=== PATIENT | female | born 1985 | race American Indian/Alaskan Native ===

== ENCOUNTER 2016-10-09 21:02 | Inpatient (IN) | payer OTHER ==
[2016-10-09] MEDS ORDERED: Sodium Chloride 0.9% 1,000 ML IV ONE (21:38)
[2016-10-09] MEDS ORDERED: Sodium Chloride 0.9% 1,000 ML ONE (21:41)
[2016-10-09 21:44] LABS: BASO % 0.3 % (0.0-2.0); HEMATOCRIT 40.5 % (34.0-47.0); LYMPH # 1.1 K/uL (1.0-4.3); MEAN CELL VOLUME 97.8 fL (81.0-99.0); MEAN CORPUSCULAR HEMOGLOBIN 32.9 pg (27.0-31.0); MEAN CORPUSCULAR HGB CONC 33.7 g/dL (33.0-37.0); MEAN PLATELET VOLUME 9.7 fL (7.2-11.7); MONO # 0.5 K/uL (0.0-0.8); MONO % 6.8 % (0.0-10.0); NRBC % 0.1 % (0.0-2.0); RED CELL DISTRIBUTION WIDTH 13.1 % (11.5-14.5); WHITE BLOOD COUNT 6.6 K/uL (4.8-10.8)
[2016-10-09 21:52] LABS: CHLORIDE 104 mmol/L (98-107); SODIUM 136 mmol/L (132-148)
[2016-10-09 21:53] LABS: POTASSIUM 4.4 mmol/L (3.6-5.2)
[2016-10-09 21:55] LABS: ALB/GLOB RATIO 1.3 (1.0-2.1); ALKALINE PHOSPHATASE 59 U/L (38-126); ALT/SGPT 13 U/L (9-52); AMYLASE 109 U/L (30-110); AST/SGOT 32 U/L (14-36); BILIRUBIN,TOTAL 1.2 mg/dL (0.2-1.3); BLOOD UREA NITROGEN 8 mg/dL (7-17); CALCIUM 9.2 mg/dl (8.6-10.4); CARBON DIOXIDE 16 mmol/L (22-30); GFR AFRICAN-AMERICAN > 60; GLUCOSE,RANDOM 146 mg/dL (65-105)
--- NOTE | 2016-10-09 21:58 | C.PDOC ---
History Of Present Illness A 31 year old female presents to the ED c/o vomiting, diarrhea with diffuse abdominal, and lower back pain that started today. Patient denies fever, chills , body aches, vaginal discharge or bleeding, or any other complaints. Patient notes the symptoms are similar to both her prior pregnancies but does not know when her last menstrual period was. Time Seen by Provider: 10/09/16 21:28 Chief Complaint (Nursing): Abdominal Pain History Per: Patient History/Exam Limitations: no limitations Onset/Duration Of Symptoms: Hrs Current Symptoms Are (Timing): Still Present Severity: Mild Location Of Pain/Discomfort: Diffuse (Abdominal pain), Other (Lower back pain) Associated Symptoms: denies: Fever, Chills Recent travel outside of the [place]: No Additional History Per: Patient Past Medical History Reviewed: Historical Data, Nursing Documentation, Vital Signs Vital Signs: Last Vital Signs Temp 97.5 F L 10/09/16 21:17 Pulse 66 10/09/16 21:17 Resp 20 10/09/16 21:17 BP 134/66 10/09/16 21:17 Pulse Ox 100 10/09/16 22:29 Family History: States: Unknown Family Hx - Social History Hx Alcohol Use: No Hx Substance Use: Yes - Immunization History Hx Tetanus Toxoid Vaccination: No Hx Influenza Vaccination: No Hx Pneumococcal Vaccination: No Review Of Systems Except As Marked, All Systems Reviewed And Found Negative. Constitutional: Negative for: Fever, Chills, Other (Body aches) Gastrointestinal: Positive for: Vomiting, Abdominal Pain (Diffuse ), Diarrhea Genitourinary: Negative for: Vaginal Discharge, Vaginal Bleeding Musculoskeletal: Positive for: Back Pain (Lower back pain) Physical Exam - Physical Exam Appears: Non-toxic, No Acute Distress (Uncomfortable), Other ( Hyperventillating. Vomiting) Skin: Warm, Dry, Pale Head: Atraumatic, Normacephalic Eye(s): bilateral: Normal Inspection Cardiovascular: Rhythm Regular, No Murmur Respiratory: Normal Breath Sounds, No Rales, No Rhonchi, No Wheezing Gastrointestinal/Abdominal: Soft, No Tenderness Neurological/Psych: Oriented x3, Normal Speech, Normal Cognition ED Course And Treatment - Laboratory Results Result Diagrams: 10/09/16 21:40 10/09/16 21:40 Lab Interpretation: Abnormal Interpretation Of Abnormal: HCO3 16, BHCG 27750 urine 2+ ketones O2 Sat by Pulse Oximetry: 100 (Room air) Pulse Ox Interpretation: Normal Progress Note: Pelvic ultrasound ordered. Reevaluation Time: 00:13 Reassessment Condition: Unchanged (Patient continues to vomit despite treatment with several doses of Zofran and IV fluids. Reglan IV ordered.) - Physician Consult Information Time Consulting Physician Contacted: 00:14 Physician Contacted: Anne A Edy Outcome Of Conversation: Patient to be admitted for IV fluids and emesis control. Medical Decision Making Medical Decision Making: Plans: -Blood labs -Zofran -Urinalysis -Reassess and disposition Disposition - Disposition Disposition: HOSPITALIZED Disposition Time: 00:14 Condition: FAIR - Clinical Impression Clinical Impression: Hyperemesis arising during - Scribe Statement The provider has reviewed the documentation as recorded by the Scribe Rody asif All medical record entries made by the Scribe were at my direction and personally dictated by me. I have reviewed the chart and agree that the record accurately reflects my personal performance of the history, physical exam, medical decision making, and the department course for this patient. I have also personally directed, reviewed, and agree with the discharge instructions and disposition.
[2016-10-09 22:38] LABS: RBC URINE 3 /hpf (0-3); URINE BILIRUBIN NEGATIVE (NEGATIVE); URINE BLOOD NEGATIVE (NEGATIVE); URINE COLOR Yellow (YELLOW); URINE GLUCOSE (UA) 1+ mg/dL (Normal); URINE KETONE 2+ mg/dL (NEGATIVE); URINE LEUKOCYTE ESTERASE NEG Leu/uL (Negative); URINE PROTEIN NEGATIVE (NEGATIVE); URINE UROBILINOGEN NORMAL mg/dL (0.2-1.0); WBC URINE 3 /hpf (0-5)
[2016-10-10] MEDS ORDERED: Sodium Chloride 0.9% 1,000 ML ONE (00:06)
[2016-10-10] MEDS ORDERED: Pyridoxine HCl 50 MG in Dextrose 5%/0.9% NS 1,000 ML IV ONE (00:22)
--- NOTE | 2016-10-10 01:31 | US ---
EXAM: US First Trimester, Transabdominal CLINICAL HISTORY: 31 years old, female; Signs and symptoms; Lmp or gestational age (in weeks): 5w6d by ultrasound; Antepartum complications; Other: Vomitting; ; Additional info: , vomiting, back pain TECHNIQUE: Real-time transabdominal obstetrical ultrasound of the maternal pelvis and a first trimester with image documentation. COMPARISON: No relevant prior studies available. FINDINGS: Gestation: Single live intrauterine gestation. heart rate of 91 beats per minute. [place]-rump length of 0.25 cm, correlating with gestational age of 5 weeks 6 days. Uterus/cervix: No subchorionic hemorrhage. No cervical dilatation or effacement. Ovaries: Normal ovaries. No adnexal masses. Free fluid: No significant free fluid. IMPRESSION: 1. Single live intrauterine gestation. 2. bradycardia. Close followup is recommended. 3. Incidental/non-acute findings are described above. EXAM: US , Transvaginal CLINICAL HISTORY: 31 years old, female; Signs and symptoms; Lmp or gestational age (in weeks): 5w6d by ultrasound; Antepartum complications; Other: Vomitting; ; Additional info: , vomiting, back pain TECHNIQUE: Real-time transvaginal obstetrical ultrasound of the maternal pelvis and a first trimester with image documentation. Transvaginal imaging was used for better evaluation of the fetus and adnexa. COMPARISON: No relevant prior studies available. FINDINGS: Gestation: Single live intrauterine gestation. heart rate of 91 beats per minute. Tome-rump length of 0.25 cm, correlating with gestational age of 5 weeks 6 days. Uterus/cervix: No subchorionic hemorrhage. No cervical dilatation or effacement. Ovaries: Normal ovaries. No adnexal masses. Free fluid: No significant free fluid.
[2016-10-10] MEDS: Pyridoxine HCl 50 MG in Dextrose 5%/0.9% NS 1,000 ML IV SCH (03:08)
[2016-10-10] MEDS: Potassium Chloride 20 MEQ in Dextrose 5%/0.9% NS 1,000 ML IV SCH ×2 (03:29→17:45)
--- NOTE | 2016-10-10 05:57 | CP.PCM.HP ---
History of Present Illness - History of Present Illness History of Present Illness: 31 yo , LMP unsure, ANDREW unsure, EGA 5w 6d by ultrasound 10/09/16 in E.D. admitted for management of intractble vomiting; despite IVFs and Zofran x 2 in the E.D. 10/09/16. Patient states had similar course with er two prevoius pregnancies: one she carried t term, one she terminated as a result of the physical duress. Tyalor now received in room 461, c/o severe low back pain. (+) Heaving; no actual vomitus in basin at her head; only saliva. P Ob: 2007, x 1 female, 6lb 6oz, CH; no complications. 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 Denies STIs PMH: denies PSH: D&C; oral surgery NKDA Meds: none Soc Hc: intermittent tobacco use. Daily marijuana use. Denies EtOH use. With FOB x 2 1/2 months Fam Hx: Mother alive 51 - multiple med issues (patient unclear). Father alive 58 - throat cancer. No other form of cancer in family Present on Admission - Present on Admission Any Indicators Present on Admission: No Review of Systems - Review of Systems All systems: reviewed and no additional remarkable complaints except - Reproductive: Female Reproductive:Female: As Per HPI Past Patient History - Infectious Disease Hx of Infectious Diseases: None - Past Medical History & Family History Past Medical History?: No - Past Social History Smoking Status: Current Some Days Smoker Alcohol: None Drugs: Cannabis (daily) - CARDIAC Hx Cardiac Disorders: No - PULMONARY Hx Respiratory Disorders: No - NEUROLOGICAL Hx Neurological Disorder: No - HEENT Hx HEENT Problems: No - RENAL Hx Chronic Kidney Disease: No - ENDOCRINE/METABOLIC Hx Endocrine Disorders: No - HEMATOLOGICAL/ONCOLOGICAL Hx Blood Disorders: No - INTEGUMENTARY Hx Dermatological Problems: No - MUSCULOSKELETAL/RHEUMATOLOGICAL Hx Back Pain: Yes Hx Falls: No - GASTROINTESTINAL Hx Gastrointestinal Disorders: Yes Hx Diarrhea: Yes Hx Nausea: Yes Hx Ulcer: Yes - GENITOURINARY/GYNECOLOGICAL Hx Genitourinary Disorders: No - PSYCHIATRIC Hx Substance Use: No - SURGICAL HISTORY Hx Surgeries: Yes Hx Dilation and Curettage: Yes - ANESTHESIA Hx Anesthesia: Yes Hx Anesthesia Reactions: No Hx Malignant Hyperthermia: No Has any member of the family had a problem w/ anesthesia?: No Meds Allergies/Adverse Reactions: Allergies Allergy/AdvReac Type Severity Reaction Status Date / Time No Known Allergies Allergy Verified 10/09/16 21:21 Physical Exam - Constitutional Appears: Well (visibly uncomfortable) - Head Exam Head Exam: NORMAL INSPECTION - Eye Exam Eye Exam: Normal appearance - ENT Exam ENT Exam: Mucous Membranes Moist - Respiratory Exam Respiratory Exam: NORMAL BREATHING PATTERN - Cardiovascular Exam Cardiovascular Exam: REGULAR RHYTHM - GI/Abdominal Exam GI & Abdominal Exam: Normal Bowel Sounds - Exam Bimanual exam: Cervical Motion Tendernes (Anteverted, 8 weeks; no adnexal masses or tenderness. Os closed), Uterine Tenderness - Extremities Exam Extremities exam: Positive for: normal inspection - Back Exam Additional comments: NO CVA tenderness - Psychiatric Exam Psychiatric exam: Anxious - Skin Skin Exam: Dry, Intact, Normal Color, Warm Results - Vital Signs Recent Vital Signs: Last Vital Signs Temp 98.6 F 10/10/16 03:10 Pulse 73 10/10/16 03:10 Resp 20 10/10/16 03:10 BP 123/68 10/10/16 03:10 Pulse Ox 98 10/10/16 03:10 - Labs Result Diagrams: 10/09/16 21:40 10/09/16 21:40 Assessment & Plan - Assessment and Plan (Free Text) Assessment: Labs and ultrasound report reviewed by me: ultrasound noted for bradycardia at 91 bpm; AGA 5w 6d. 31 yo P1011, 6w, intractable vomiting with ketonuria; no electrolyte imbalances. Possible impending demise. Will intake counselor patient Plan: Admit NPO Anti-emetics Pyridoxine IVFs Observe - Date & Time Date: 10/10/16 Time: 06:02
--- NOTE | 2016-10-10 10:54 | CP.PCM.PN ---
Subjective - Date & Time of Evaluation Date of Evaluation: 10/10/16 Time of Evaluation: 08:10 - Subjective Subjective: pt was seen at bed side, vomiting still. /o back pain. pt states she cant even sit, no vb.undesired preg sono 5.6weeks bradycardia. tsh 0.9 free t4 normal Objective - Vital Signs/Intake and Output Vital Signs (last 24 hours): Temp Pulse Resp BP Pulse Ox 98.1 F 72 18 124/70 100 10/10/16 08:00 10/10/16 08:00 10/10/16 08:00 10/10/16 08:00 10/10/16 08:00 Intake and Output: 10/10/16 10/10/16 06:59 18:59 Intake Total 460 Balance 460 - Medications Medications: Current Medications Pyridoxine HCl 50 mg/ Dextrose (/Sodium Chloride) 1,000.5 mls @ 40 mls/hr IV .Q24H [facility] Last Admin: 10/10/16 03:08 Dose: 40 mls/hr Potassium Chloride 20 meq/ (Dextrose/Sodium Chloride) 1,010 mls @ 85 mls/hr IV .[id number] [facility] Last Admin: 10/10/16 03:29 Dose: 85 mls/hr Ketorolac Tromethamine (Toradol) 30 mg IVP Q6 PRN PRN Reason: Pain, severe (8-10) Last Admin: 10/10/16 08:46 Dose: 30 mg Ondansetron HCl (Zofran Inj) 8 mg IVP Q8H [facility] Last Admin: 10/10/16 10:50 Dose: 8 mg Pantoprazole Sodium (Protonix Inj) 40 mg IVP Q12H [facility] Last Admin: 10/10/16 02:30 Dose: 40 mg Promethazine HCl (Phenergan Inj) 25 mg IM Q6 PRN PRN Reason: Nausea/Vomiting Assessment and Plan - Assessment and Plan (Free Text) Assessment: 31 yr at 5+weeks hyperemesis gravidarum Plan: plan cont zofran maris ivp repeat sono 5/2 free t3 repeat cbc/cmp in am cont management
[2016-10-11] MEDS: Potassium Chloride 20 MEQ in Dextrose 5%/0.9% NS 1,000 ML IV SCH ×2 (05:30→17:00)
[2016-10-11] MEDS: Pyridoxine HCl 50 MG in Dextrose 5%/0.9% NS 1,000 ML IV SCH (05:35)
--- NOTE | 2016-10-11 08:13 | US ---
Pelvic ultrasound History: . Assess viability. Comparison: None available. Technique: Real-time sonography was performed through the pelvis. Findings: Uterus: 10.6 x 4.9 x 5.4 centimeters. Anteverted. Intrauterine gestational sac measuring 1.6 centimeters corresponding to a gestational age of 6 weeks and 0 days. Yolk sac measures 2.2 millimeters. [place]-rump length measures 3.6 millimeters corresponding to a gestational age of 6 weeks and 0 days. heart rate of 108 beats per minute. Small amount of free fluid noted within the pelvic cul-de-sac. Right ovary: 4.4 x 2.3 x 3.7 centimeters. Normal flow. Left ovary: 3.1 x 1.9 x 2.4 centimeters. Normal flow. Impression: Intrauterine corresponding to a gestational age of approximately 6 weeks and 0 days with a crown-rump length of 3.6 millimeters. heart rate of 108 beats per minute. Small amount of free fluid within the pelvic cul-de-sac. Limited 1st trimester ultrasound for viability purposes only. Continued interval followup with serial ultrasound, serial HCG levels, and gynecological consultation would be helpful if clinically indicated.
--- NOTE | 2016-10-11 12:08 | CP.PCM.PN ---
Subjective - Date & Time of Evaluation Date of Evaluation: 10/11/16 Time of Evaluation: 12:04 - Subjective Subjective: PGY-[address] Santamaria Patient was seen and examined at bedside. Patient continues to complain of back pain and nausea. Patient states that she has not vomited since last night. She states that she is uncomfortable 10/10 lower back pain. Patient states the pain is better with heat. She also reports some abdominal soreness worse with vomiting. Objective - Vital Signs/Intake and Output Vital Signs (last 24 hours): Temp Pulse Resp BP Pulse Ox 98 F 60 18 114/73 100 10/11/16 07:35 10/11/16 07:35 10/11/16 07:35 10/11/16 07:35 10/11/16 07:35 Intake and Output: 10/11/16 10/11/16 06:59 18:59 Intake Total 1500 Balance 1500 - Medications Medications: Current Medications Acetaminophen (Tylenol 325mg Tab) 650 mg PO Q6 PRN PRN Reason: Pain, moderate (4-7) Pyridoxine HCl 50 mg/ Dextrose (/Sodium Chloride) 1,000.5 mls @ 40 mls/hr IV .Q24H [facility] Last Admin: 10/11/16 05:35 Dose: 40 mls/hr Potassium Chloride 20 meq/ (Dextrose/Sodium Chloride) 1,010 mls @ 85 mls/hr IV .[id number] [facility] Last Admin: 10/11/16 05:30 Dose: 85 mls/hr Metoclopramide HCl (Reglan) 10 mg IVP Q6H [facility] Ondansetron HCl (Zofran Inj) 4 mg IVP Q6H [facility] Pantoprazole Sodium (Protonix Inj) 40 mg IVP Q12H [facility] Last Admin: 10/11/16 06:26 Dose: 40 mg Promethazine HCl (Phenergan Inj) 25 mg IM Q6 PRN PRN Reason: Nausea/Vomiting - Head Exam Head Exam: ATRAUMATIC, NORMOCEPHALIC - Eye Exam Eye Exam: Normal appearance - ENT Exam ENT Exam: Mucous Membranes Moist - Respiratory Exam Respiratory Exam: Clear to Ausculation Bilateral, NORMAL BREATHING PATTERN. absent: Rhonchi, Wheezes, Respiratory Distress - Cardiovascular Exam Cardiovascular Exam: REGULAR RHYTHM. absent: Tachycardia, Murmur - GI/Abdominal Exam GI & Abdominal Exam: Soft, Tenderness (diffusely ), Normal Bowel Sounds. absent : Distended, Firm - Extremities Exam Extremities Exam: Normal Inspection. absent: Pedal Edema - Back Exam Back Exam: muscle spasm (lower back) - Neurological Exam Neurological Exam: Alert, Awake, Oriented x3 Assessment and Plan - Assessment and Plan (Free Text) Assessment: 31 yo female at 5 weeks presents with hyperemesis gravidarum. Plan: - advance diet to clear liquids - continue IVF - continue zofran at 4mg IVP q6, reglan 10 mg IVP q6 - 1 dose flexril for back pain, muscle spasm - cont heating pad for lower back - repeat cbc, cmp, lipase and amylase
[2016-10-11 20:21] LABS: BASO % 0.2 % (0.0-2.0); HEMATOCRIT 35.4 % (34.0-47.0); LYMPH # 1.3 K/uL (1.0-4.3); LYMPH % 13.4 % (20.0-40.0); MEAN CELL VOLUME 95.3 fL (81.0-99.0); MEAN CORPUSCULAR HEMOGLOBIN 32.2 pg (27.0-31.0); MEAN CORPUSCULAR HGB CONC 33.8 g/dL (33.0-37.0); MEAN PLATELET VOLUME 9.4 fL (7.2-11.7); MONO # 0.9 K/uL (0.0-0.8); MONO % 9.2 % (0.0-10.0); RED CELL DISTRIBUTION WIDTH 12.9 % (11.5-14.5); WHITE BLOOD COUNT 9.4 K/uL (4.8-10.8)
[2016-10-11 20:29] LABS: CHLORIDE 104 mmol/L (98-107); POTASSIUM 3.3 mmol/L (3.6-5.2); SODIUM 134 mmol/L (132-148)
[2016-10-11 20:31] LABS: AMYLASE 98 U/L (30-110)
[2016-10-11 20:32] LABS: ALB/GLOB RATIO 1.2 (1.0-2.1); ALKALINE PHOSPHATASE 43 U/L (38-126); ALT/SGPT 29 U/L (9-52); AST/SGOT 18 U/L (14-36); BILIRUBIN,TOTAL 0.8 mg/dL (0.2-1.3); BLOOD UREA NITROGEN 5 mg/dL (7-17); CALCIUM 8.3 mg/dl (8.6-10.4); CARBON DIOXIDE 23 mmol/L (22-30); GFR AFRICAN-AMERICAN > 60; GLUCOSE,RANDOM 107 mg/dL (65-105); TOTAL PROTEIN 6.4 g/dL (6.3-8.3)
[2016-10-12] MEDS: Potassium Chloride 20 MEQ in Dextrose 5%/0.9% NS 1,000 ML IV SCH (05:32)
[2016-10-12] MEDS ORDERED: Pyridoxine HCl 50 MG in Dextrose 5%/0.9% NS 1,000 ML IV ONE (09:28)
--- NOTE | 2016-10-12 11:19 | CP.PCM.PN ---
Subjective - Date & Time of Evaluation Date of Evaluation: 10/12/16 Time of Evaluation: 09:45 - Subjective Subjective: Patient received in room 461, sitting up vomiting - moderate amount of bilious material. Patient states "I've been vomiting like this all day". Nursing documentation records only one episode of vomiting during the day and night shifts - mostly only saliva. Reports back pain is better; pain scale now 6/10 (S /P flexeril x 1 dose, 10/11/16). Patient is somewhat hungry; desires to drink fluids and sleep. Objective - Vital Signs/Intake and Output Vital Signs (last 24 hours): Temp Pulse Resp BP Pulse Ox 97 F L 60 18 137/84 99 10/12/16 09:50 10/12/16 07:52 10/12/16 07:52 10/12/16 07:52 10/12/16 07:52 Intake and Output: 10/12/16 10/12/16 06:59 18:59 Intake Total 1800 Output Total 200 Balance 1600 - Medications Medications: Current Medications Acetaminophen (Tylenol 325mg Tab) 650 mg PO Q6 PRN PRN Reason: Pain, moderate (4-7) Last Admin: 10/12/16 09:50 Dose: 650 mg Pyridoxine HCl 50 mg/ Dextrose (/Sodium Chloride) 1,000.5 mls @ 125 mls/hr IV .Q8H1M ONE Stop: 10/12/16 17:28 Last Admin: 10/12/16 09:52 Dose: 125 mls/hr Ondansetron HCl (Zofran Inj) 4 mg IVP Q6H [facility] Last Admin: 10/12/16 09:49 Dose: 4 mg Pantoprazole Sodium (Protonix Inj) 40 mg IVP Q12H [facility] Last Admin: 10/12/16 05:26 Dose: 40 mg Promethazine HCl (Phenergan Inj) 25 mg IM Q6 PRN PRN Reason: Nausea/Vomiting - Labs Labs: 10/11/16 20:17 10/11/16 20:17 - Constitutional Appears: Well, Non-toxic, No Acute Distress - Head Exam Head Exam: NORMAL INSPECTION - Eye Exam Eye Exam: Normal appearance - ENT Exam ENT Exam: Mucous Membranes Moist - Respiratory Exam Respiratory Exam: NORMAL BREATHING PATTERN - Cardiovascular Exam Cardiovascular Exam: REGULAR RHYTHM - GI/Abdominal Exam Additional comments: Mild discomfort to palpation - generalized - Extremities Exam Extremities Exam: Full ROM, Normal Inspection - Back Exam Back Exam: NORMAL INSPECTION - Psychiatric Exam Psychiatric exam: Anxious - Skin Skin Exam: Dry, Intact, Normal Color, Warm Assessment and Plan - Assessment and Plan (Free Text) Assessment: HD#3 P1011, 6w 2d, hyperemesis gravidarum - stabllizing. Hypokalemia - being replaced. Clinically stable. Plan: Resume clear liquid diet with dry foodstuff like toast or cereal Continue anti-emetics Tylenol, PRN, CBC, K level now OOB and ambulate
[2016-10-12 11:30] LABS: HEMATOCRIT 37.3 % (34.0-47.0); MEAN CELL VOLUME 96.4 fL (81.0-99.0); MEAN CORPUSCULAR HEMOGLOBIN 32.4 pg (27.0-31.0); MEAN CORPUSCULAR HGB CONC 33.6 g/dL (33.0-37.0); MEAN PLATELET VOLUME 10.1 fL (7.2-11.7); RED CELL DISTRIBUTION WIDTH 12.9 % (11.5-14.5); WHITE BLOOD COUNT 8.2 K/uL (4.8-10.8)
[2016-10-12] MEDS ORDERED: Potassium Chloride 20 MEQ in Dextrose 5%/0.9% NS 1,000 ML IV ONE (16:32)
[2016-10-13 07:50] VITALS: BP 127/73; PULSE 106; RESP 18; TEMP 97.5; O2SAT 99
--- NOTE | 2016-10-27 21:07 | CP.PCM.DIS ---
Provider - Provider Date of Admission: 10/10/16 00:20 Attending physician: Anne Snow MD Time Spent in preparation of Discharge (in minutes): 30 Hospital Course - Lab Results Lab Results: Most Recent Lab Values WBC 8.2 K/uL (4.8-10.8) 10/12/16 11:17 RBC 3.87 Mil/uL (3.80-5.20) 10/12/16 11:17 Hgb 12.5 g/dL (11.0-16.0) 10/12/16 11:17 Hct 37.3 % (34.0-47.0) 10/12/16 11:17 MCV 96.4 fL (81.0-99.0) 10/12/16 11:17 MCH 32.4 pg (27.0-31.0) H 10/12/16 11:17 MCHC 33.6 g/dL (33.0-37.0) 10/12/16 11:17 RDW 12.9 % (11.5-14.5) 10/12/16 11:17 Plt Count 191 K/uL (130-400) 10/12/16 11:17 MPV 10.1 fL (7.2-11.7) 10/12/16 11:17 Neut % (Auto) 77.2 % (50.0-75.0) H 10/11/16 20:17 Lymph % (Auto) 13.4 % (20.0-40.0) L 10/11/16 20:17 [place] % (Auto) 9.2 % (0.0-10.0) 10/11/16 20:17 Eos % (Auto) 0.0 % (0.0-4.0) 10/11/16 20:17 Baso % (Auto) 0.2 % (0.0-2.0) 10/11/16 20:17 Neut # 7.3 K/uL (1.8-7.0) H 10/11/16 20:17 Lymph # 1.3 K/uL (1.0-4.3) 10/11/16 20:17 [place] # 0.9 K/uL (0.0-0.8) H 10/11/16 20:17 Eos # 0.0 K/uL (0.0-0.7) 10/11/16 20:17 Baso # 0.0 K/uL (0.0-0.2) 10/11/16 20:17 Sodium 134 mmol/L (132-148) 10/11/16 20:17 Potassium 3.8 mmol/L (3.6-5.2) 10/13/16 08:48 Chloride 104 mmol/L (98-107) 10/11/16 20:17 Carbon Dioxide 23 mmol/L (22-30) 10/11/16 20:17 Anion Gap 11 (10-20) 10/11/16 20:17 BUN 5 mg/dL (7-17) L 10/11/16 20:17 Creatinine 0.6 MG/DL (0.7-1.2) L 10/11/16 20:17 Est GFR ( Amer) > 60 10/11/16 20:17 Est GFR (Non-Af Amer) > 60 10/11/16 20:17 Random Glucose 107 mg/dL (65-105) H 10/11/16 20:17 Calcium 8.3 mg/dl (8.6-10.4) L 10/11/16 20:17 Total Bilirubin 0.8 mg/dL (0.2-1.3) 10/11/16 20:17 AST 18 U/L (14-36) 10/11/16 20:17 ALT 29 U/L (9-52) 10/11/16 20:17 Alkaline Phosphatase 43 U/L (38-126) 10/11/16 20:17 Total Protein 6.4 g/dL (6.3-8.3) 10/11/16 20:17 Albumin 3.5 g/dL (3.5-5.0) D 10/11/16 20:17 Globulin 2.9 gm/dL (2.2-3.9) 10/11/16 20:17 Albumin/Globulin Ratio 1.2 (1.0-2.1) 10/11/16 20:17 Amylase 98 U/L (30-110) 10/11/16 20:17 Lipase 22 U/L (23-300) L 10/11/16 20:17 Free T4 0.99 ng/dL (0.78-2.19) 10/10/16 07:24 TSH 3rd Generation 0.11 mIU/L (0.46-4.68) L 10/10/16 07:24 Beta HCG, Quant 97787.00 mIU/ML 10/10/16 16:25 Urine Color Yellow (YELLOW) 10/09/16 22:30 Urine Clarity Hazy (Clear) 10/09/16 22:30 Urine pH 7.0 (5.0-8.0) 10/09/16 22:30 Ur Specific [place] 1.019 (1.003-1.030) 10/09/16 22:30 Urine Protein Negative mg/dL (NEGATIVE) 10/09/16 22:30 Urine Glucose (UA) 1+ mg/dL (Normal) 10/09/16 22:30 Urine Ketones 2+ mg/dL (NEGATIVE) H 10/09/16 22:30 Urine Blood Negative (NEGATIVE) 10/09/16 22:30 Urine Nitrate Negative (NEGATIVE) 10/09/16 22:30 Urine Bilirubin Negative (NEGATIVE) 10/09/16 22:30 Urine Urobilinogen Normal mg/dL (0.2-1.0) 10/09/16 22:30 Ur Leukocyte Esterase Neg [place]/uL (Negative) 10/09/16 22:30 Urine WBC (Auto) 3 /hpf (0-5) 10/09/16 22:30 Urine RBC (Auto) 3 /hpf (0-3) 10/09/16 22:30 Ur Squamous Epith Cells 17 /hpf (0-5) H 10/09/16 22:30 Urine HCG, Qual Positive (NEGATIVE) 10/09/16 22:30 - Hospital Course Hospital Course: Patient improved with IV Hydration and anti-emetic. Discharge Exam - Head Exam Head Exam: NORMAL INSPECTION - Respiratory Exam Respiratory Exam: NORMAL BREATHING PATTERN, UNREMARKABLE - GI/Abdominal Exam GI & Abdominal Exam: Normal Bowel Sounds, Unremarkable Discharge Plan - Discharge Medications Prescriptions: Promethazine [Phenergan] 12.5 mg RC Q6 PRN #20 sup PRN Reason: Nausea/Vomiting - Follow Up Plan Condition: GOOD Disposition: HOME/ ROUTINE Instructions: Hyperemesis Gravidarum (DC) Additional Instructions: Patient is stable for discharge home. Patient is to follow up with OBGYN. Patient was prescribed Phenergan rectal suppository 12.5 mg, take as needed for nausea/ vomiting. Patient is aware of discharge plan.
== END 2016-10-13 13:10 | disposition home or self-care (01) | DRG 886 ==
LOC: C.ER 21:02 → C.4M 10-10 00:20
PROVIDERS: ADMIT Obstetrics & Gynecology; ATTEND Obstetrics & Gynecology
DX: O21.0 Mild hyperemesis gravidarum (principal); O99.89 Other specified diseases and conditions complicating pregnancy, childbirth and the puerperium; E87.6 Hypokalemia; O99.281 Endocrine, nutritional and metabolic diseases complicating pregnancy, first trimester; O76 Abnormality in fetal heart rate and rhythm complicating labor and delivery; Z3A.01 Less than 8 weeks gestation of pregnancy